=== PATIENT | female | born 1935 | race Caucasian/White ===

== ENCOUNTER 2020-01-16 00:08 | Inpatient (IN) ==
[2020-01-16] MEDS: FentaNYL (PF) 1,000 MCG in 0.9 % Sodium Chloride 80 ML IVC SCH ×2 (02:42→22:07)
[2020-01-16] MEDS: Norepinephrine 4 MG in 0.9 % Sodium Chloride 250 ML IVC SCH ×2 (02:45→13:52)
[2020-01-16] MEDS ORDERED: Naloxone 0.4 MG/ML INJ IVP PRN (03:10)
[2020-01-16] MEDS: Pantoprazole 40 MG VIAL IVP SCH ×2 (04:35→17:40)
[2020-01-16 05:05] LABS: ABG Base Excess 4 mEq/L (-2 to 3); ABG HCO3 31 mEq/L (21-27); ABG Oxygen Saturation 96 % (95-98); ABG PCO2 64 mmHg (35-45); ABG PH 7.29 pH Units (7.32-7.45); ABG PO2 91 mmHg (85-104); ABG TCO2 33 mEq/L (20-26); Blood Gas Modality AF; Blood Gas VT 500 cc
[2020-01-16 06:22] LABS: Basophils % 0.1 %; Eosinophils % 0.1 %; Hemoglobin 7.9 g/dL (11.5-15.4); Mean Platelet Volume 12.9 fL (9.4-12.4)
[2020-01-16 06:24] LABS: Hematocrit 26.2 % (35.3-44.9); INR 1.6; Immature Granulocytes % 6.7 % (0-4); Immature Platelets 17.4 % (1.1-6.1); Lymphocytes # 0.9 K/mcL (0.6-4.6); Lymphocytes % 3.4 %; Mean Corpuscular HGB Conc 30.2 g/dL (31.6-35.5); Mean Corpuscular Hemoglobin 27.8 pg (28.0-33.3); Mean Corpuscular Volume 92.3 fL (83.0-100.0); Monocytes # 6.7 K/mcL (0.0-1.3); Monocytes % 25.5 %; Neutrophils # 16.9 K/mcL (1.6-8.9); Prothrombin Time 17.9 Seconds (9.4-12.1); Red Blood Count 2.84 M/mcL (3.82-4.97); Segmented Neutrophils % 64.2 %; White Blood Count 26.3 K/mcL (4.3-11.1)
[2020-01-16 06:26] LABS: Activated Partial Thrombo Time 32.4 Seconds (26.0-36.0); Platelet Count 83 K/mcL (140-400)
[2020-01-16 06:40] LABS: Albumin 3.6 g/dL (3.5-5.7); Albumin/Globulin Ratio 1.4 (1.1-2.2); Bilirubin,Total 0.6 mg/dL (0.3-1.0); Calcium 8.8 mg/dL (8.6-10.3); Globulin 2.6 g/dL (2.4-3.5); Potassium 4.9 mEq/L (3.5-5.1); Total Protein 6.2 g/dL (6.4-8.9)
[2020-01-16 06:51] LABS: Platelet Estimate Decreased (Normal)
[2020-01-16] MEDS ORDERED: *HR* Dextrose 50 % in Water (Syg) 50 ML SYRINGE IVP PRN (06:54)
[2020-01-16] MEDS ORDERED: D5% in Water 1,000 ML IVC PRN (06:54)
[2020-01-16] MEDS ORDERED: Dextrose Gel 15 GM/37.5 ML TUBE PO PRN ×2 (06:54)
[2020-01-16] MEDS ORDERED: Azithromycin 500 MG in D5% in Water 250 ML IVPB SCH (07:00)
[2020-01-16] MEDS: cefTRIAXone 1,000 MG in Water for inj. (sterile) 10 ML IVP SCH (07:45)
[2020-01-16] MEDS ORDERED: Artificial Tears SOLN 15 ML BOTTLE BOTH EYES PRN (09:02)
[2020-01-16] MEDS: Insulin LISPRO 300 UNITS/3 ML VIAL SQ SCH ×3 (12:47→23:14)
[2020-01-16] MEDS: Artificial Tears SOLN 15 ML BOTTLE BOTH EYES SCH ×4 (12:47→23:14)
[2020-01-16] MEDS: Chlorhexidine Rinse 15 ML MOUTHWASH MM SCH ×2 (12:47→21:03)
[2020-01-16 14:19] LABS: Calcium 8.9 mg/dL (8.6-10.3); Potassium 4.4 mEq/L (3.5-5.1); Troponin I 0.03 ng/mL (< 0.04)
[2020-01-16 14:26] LABS: Mean Corpuscular Volume 90.4 fL (83.0-100.0)
[2020-01-16 14:29] LABS: Hematocrit 25.4 % (35.3-44.9); Hemoglobin 7.9 g/dL (11.5-15.4); Immature Platelets 16.7 % (1.1-6.1); Mean Corpuscular HGB Conc 31.1 g/dL (31.6-35.5); Mean Corpuscular Hemoglobin 28.1 pg (28.0-33.3); Mean Platelet Volume 12.9 fL (9.4-12.4); Red Blood Count 2.81 M/mcL (3.82-4.97); White Blood Count 24.6 K/mcL (4.3-11.1)
[2020-01-16 15:00] LABS: Platelet Count 86 K/mcL (140-400)
[2020-01-16 15:02] LABS: Large Platelets Present (Not Present); Platelet Estimate Decreased (Normal)
[2020-01-16 15:03] LABS: Anisocytosis 1+ (Not Present)
[2020-01-16 15:05] LABS: Neutrophils # 18.2 K/mcL (1.6-8.9)
[2020-01-16 15:09] LABS: ABG Base Excess 5 mEq/L (-2 to 3); ABG HCO3 27 mEq/L (21-27); ABG Oxygen Saturation 98 % (95-98); ABG PCO2 33 mmHg (35-45); ABG PH 7.53 pH Units (7.32-7.45); ABG PO2 94 mmHg (85-104); ABG TCO2 28 mEq/L (20-26); Blood Gas VT 500 cc
[2020-01-16] MEDS: Doxycycline 100 MG in 0.9 % Sodium Chloride Mini Bag 100 ML IVPB SCH ×2 (17:36→17:39)
[2020-01-16] MEDS ORDERED: *HR* Metoprolol 5 MG/5 ML VIAL IVP ONE ×2 (19:33→19:47)
[2020-01-16] MEDS ORDERED: DilTIAZem 50 MG in 0.9 % Sodium Chloride 40 ML IVC SCH (20:30)
[2020-01-16 20:40] LABS: Magnesium 1.7 mg/dL (1.6-2.6); Phosphorous 2.4 mg/dL (2.7-4.5)
[2020-01-16] MEDS: Phenylephrine 10 MG in 0.9 % Sodium Chloride 250 ML IVC SCH ×2 (20:46→22:59)
[2020-01-16] MEDS: Apixaban 2.5 MG TABLET PO SCH (21:03)
[2020-01-17] MEDS: Phenylephrine 10 MG in 0.9 % Sodium Chloride 250 ML IVC SCH (01:43)
[2020-01-17 04:29] LABS: ABG Base Excess 5 mEq/L (-2 to 3); ABG HCO3 31 mEq/L (21-27); ABG Oxygen Saturation 96 % (95-98); ABG PCO2 51 mmHg (35-45); ABG PH 7.38 pH Units (7.32-7.45); ABG PO2 83 mmHg (85-104); ABG TCO2 32 mEq/L (20-26); Blood Gas Modality AF; Blood Gas VT 400 cc
[2020-01-17] MEDS: Artificial Tears SOLN 15 ML BOTTLE BOTH EYES SCH ×2 (04:30→08:31)
[2020-01-17 04:52] LABS: Hemoglobin 7.6 g/dL (11.5-15.4)
[2020-01-17 04:53] LABS: Hematocrit 24.5 % (35.3-44.9); Immature Platelets 12.8 % (1.1-6.1); Mean Corpuscular Hemoglobin 28.6 pg (28.0-33.3); Mean Corpuscular Volume 92.1 fL (83.0-100.0); Mean Platelet Volume 12.5 fL (9.4-12.4); Red Blood Count 2.66 M/mcL (3.82-4.97); Red Cell Distribution Width 14.3 % (11.5-14.5); White Blood Count 19.9 K/mcL (4.3-11.1)
[2020-01-17 04:56] LABS: Platelet Count 88 K/mcL (140-400)
[2020-01-17] MEDS ORDERED: Phenylephrine 50 MG in 0.9 % Sodium Chloride 250 ML IVC SCH (05:00)
[2020-01-17 05:12] LABS: Calcium 8.6 mg/dL (8.6-10.3); Magnesium 1.7 mg/dL (1.6-2.6); Phosphorous 2.7 mg/dL (2.7-4.5); Potassium 4.1 mEq/L (3.5-5.1)
[2020-01-17] MEDS: Doxycycline 100 MG in 0.9 % Sodium Chloride Mini Bag 100 ML IVPB SCH ×2 (05:14→16:30)
[2020-01-17] MEDS: Pantoprazole 40 MG VIAL IVP SCH (05:14)
[2020-01-17] MEDS: Insulin LISPRO 300 UNITS/3 ML VIAL SQ SCH ×3 (05:15→16:31)
[2020-01-17 05:25] LABS: Lymphocytes # 4.8 K/mcL (0.6-4.6); Monocytes # 1.2 K/mcL (0.0-1.3); Neutrophils # 13.9 K/mcL (1.6-8.9); Platelet Estimate Decreased (Normal)
[2020-01-17 05:26] LABS: Large Platelets Present (Not Present)
[2020-01-17] MEDS ORDERED: Morphine Sulfate Oral CONC 10 MG/0.5 ML ORAL.SYG SL PRN (08:05)
[2020-01-17] MEDS: cefTRIAXone 1,000 MG in Water for inj. (sterile) 10 ML IVP SCH (08:31)
[2020-01-17] MEDS: Chlorhexidine Rinse 15 ML MOUTHWASH MM SCH (08:31)
[2020-01-17] MEDS: Apixaban 2.5 MG TABLET PO SCH ×2 (08:31→20:20)
[2020-01-17] MEDS ORDERED: Naloxone 0.4 MG/ML INJ IVP PRN (09:42)
[2020-01-17] MEDS ORDERED: *HR* Dextrose 50 % in Water (Syg) 50 ML SYRINGE IVP PRN (09:42)
[2020-01-17] MEDS ORDERED: Dextrose Gel 15 GM/37.5 ML TUBE PO PRN ×2 (09:42)
[2020-01-17] MEDS ORDERED: D5% in Water 1,000 ML IVC PRN (09:42)
[2020-01-17] MEDS: DilTIAZem CD (24hr) 180 MG CAP.ER.24H PO SCH (12:34)
[2020-01-17] MEDS: Gabapentin 300 MG CAPSULE PO SCH ×2 (16:30→20:20)
[2020-01-17] MEDS: *HR* HYDROcodone/Acet 10/325 mg TABLET PO PRN (22:09)
[2020-01-18] MEDS: Insulin LISPRO 300 UNITS/3 ML VIAL SQ SCH ×5 (01:30→21:46)
[2020-01-18] MEDS: Doxycycline 100 MG in 0.9 % Sodium Chloride Mini Bag 100 ML IVPB SCH ×2 (06:01→17:12)
[2020-01-18 07:50] LABS: Estimated Average Glucose 134 mg/dl
[2020-01-18] MEDS ORDERED: LIDOCAINE TD SCH (09:00)
[2020-01-18] MEDS ORDERED: cefTRIAXone 1,000 MG in Water for inj. (sterile) 10 ML IVP SCH (09:00)
[2020-01-18] MEDS: Cyanocobalamin (B-12) 1,000 MCG TABLET PO SCH (09:04)
[2020-01-18] MEDS: Gabapentin 300 MG CAPSULE PO SCH ×3 (09:04→21:44)
[2020-01-18] MEDS: DilTIAZem CD (24hr) 180 MG CAP.ER.24H PO SCH (09:04)
[2020-01-18] MEDS: Cholecalciferol (D-3) 1,000 UNIT (25MCG) TABLET PO SCH (09:04)
[2020-01-18] MEDS: Apixaban 2.5 MG TABLET PO SCH ×2 (09:04→21:44)
[2020-01-18 10:00] LABS: Calcium 9.1 mg/dL (8.6-10.3)
[2020-01-18 13:59] LABS: Hematocrit 25.8 % (35.3-44.9); Hemoglobin 7.8 g/dL (11.5-15.4); Mean Corpuscular HGB Conc 30.2 g/dL (31.6-35.5); Mean Corpuscular Hemoglobin 28.4 pg (28.0-33.3); Mean Corpuscular Volume 93.8 fL (83.0-100.0); Mean Platelet Volume 12.3 fL (9.4-12.4); Red Blood Count 2.75 M/mcL (3.82-4.97); Red Cell Distribution Width 14.3 % (11.5-14.5); White Blood Count 11.7 K/mcL (4.3-11.1)
[2020-01-18 14:00] LABS: Platelet Count 97 K/mcL (140-400)
[2020-01-18] MEDS ORDERED: cefTRIAXone 1,000 MG in Water for inj. (sterile) 10 ML IVP ONE (14:06)
[2020-01-18] MEDS: Furosemide 20 MG TABLET PO SCH (17:12)
[2020-01-18] MEDS: Budesonide/Formoterol 160/4.5 1 PUFF INH IH SCH (20:07)
[2020-01-18] MEDS: (Cyclosporine [Restasis] 1 DROP) OP SCH (21:46)
[2020-01-19] MEDS: Fluticasone Propionate Nasal 50 MCG/SPRAY BOTTLE NS SCH ×3 (00:09→10:13)
[2020-01-19] MEDS: *HR* HYDROcodone/Acet 10/325 mg TABLET PO PRN ×2 (01:39→23:27)
[2020-01-19 03:57] LABS: Hematocrit 24.9 % (35.3-44.9); Hemoglobin 7.6 g/dL (11.5-15.4); Immature Platelets 11.4 % (1.1-6.1); Mean Corpuscular HGB Conc 30.5 g/dL (31.6-35.5); Mean Corpuscular Hemoglobin 28.6 pg (28.0-33.3); Mean Corpuscular Volume 93.6 fL (83.0-100.0); Red Blood Count 2.66 M/mcL (3.82-4.97); Red Cell Distribution Width 14.3 % (11.5-14.5); White Blood Count 11.1 K/mcL (4.3-11.1)
[2020-01-19 04:16] LABS: Calcium 8.9 mg/dL (8.6-10.3); Potassium 4.3 mEq/L (3.5-5.1)
[2020-01-19] MEDS: Doxycycline 100 MG in 0.9 % Sodium Chloride Mini Bag 100 ML IVPB SCH ×2 (05:06→17:08)
[2020-01-19] MEDS: Insulin LISPRO 300 UNITS/3 ML VIAL SQ SCH ×4 (07:33→21:11)
[2020-01-19] MEDS ORDERED: NON-FORMULARY MEDICATION 1 EACH EACH (Gluc/Chon-Msm#1/C/Mang/Bos/Bor [Osteo Bi-Flex Caplet PO SCH (09:00)
[2020-01-19] MEDS ORDERED: NON-FORMULARY MEDICATION 1 EACH EACH (Biotin 1 MG) PO SCH (09:00)
[2020-01-19] MEDS ORDERED: 0.9 % Sodium Chloride 1,000 ML IVC SCH (09:45)
[2020-01-19] MEDS: Ascorbic Acid 500 MG TABLET PO SCH (09:56)
[2020-01-19] MEDS: Furosemide 20 MG TABLET PO SCH ×2 (09:57→16:01)
[2020-01-19] MEDS: Apixaban 2.5 MG TABLET PO SCH ×2 (09:57→21:42)
[2020-01-19] MEDS: DilTIAZem CD (24hr) 180 MG CAP.ER.24H PO SCH (09:57)
[2020-01-19] MEDS: Gabapentin 300 MG CAPSULE PO SCH ×3 (09:58→21:42)
[2020-01-19] MEDS: (Cyclosporine [Restasis] 1 DROP) OP SCH ×2 (09:58→23:19)
[2020-01-19] MEDS: Magnesium Oxide 400 MG TABLET PO SCH (09:58)
[2020-01-19] MEDS: Cyanocobalamin (B-12) 1,000 MCG TABLET PO SCH (09:59)
[2020-01-19] MEDS: cefTRIAXone 2,000 MG in 0.9 % Sodium Chloride Mini Bag 100 ML IVPB SCH (09:59)
[2020-01-19] MEDS: lisinopriL 10 MG TABLET PO SCH (10:01)
[2020-01-19] MEDS: Cholecalciferol (D-3) 1,000 UNIT (25MCG) TABLET PO SCH (10:01)
[2020-01-19] MEDS: Multivit/Ca/Min/Fe/FA 1 TAB TABLET PO SCH (10:01)
[2020-01-19] MEDS: Budesonide/Formoterol 160/4.5 1 PUFF INH IH SCH ×2 (10:30→20:18)
[2020-01-20] MEDS: Albuterol 2.5 MG/3 ML NEBULIZER IH PRN ×4 (03:08→20:03)
[2020-01-20] MEDS: Doxycycline 100 MG in 0.9 % Sodium Chloride Mini Bag 100 ML IVPB SCH (04:23)
[2020-01-20] MEDS: Budesonide/Formoterol 160/4.5 1 PUFF INH IH SCH ×2 (07:28→20:04)
[2020-01-20 08:14] LABS: Hematocrit 26.3 % (35.3-44.9); Hemoglobin 7.9 g/dL (11.5-15.4); Mean Corpuscular Hemoglobin 28.2 pg (28.0-33.3); Mean Corpuscular Volume 93.9 fL (83.0-100.0); Mean Platelet Volume 12.2 fL (9.4-12.4); Nucleated Red Blood Cells 0.2 /100 WBC (0); Red Cell Distribution Width 14.1 % (11.5-14.5); White Blood Count 9.8 K/mcL (4.3-11.1)
[2020-01-20 08:16] LABS: Platelet Count 86 K/mcL (140-400)
[2020-01-20 08:33] LABS: Calcium 8.9 mg/dL (8.6-10.3); Magnesium 1.3 mg/dL (1.6-2.6); Potassium 4.3 mEq/L (3.5-5.1)
[2020-01-20 08:37] LABS: Monocytes # 2.9 K/mcL (0.0-1.3); Neutrophils # 4.5 K/mcL (1.6-8.9)
[2020-01-20 08:38] LABS: Platelet Estimate Slight Decrease (Normal)
[2020-01-20] MEDS: Insulin LISPRO 300 UNITS/3 ML VIAL SQ SCH ×4 (08:40→22:32)
[2020-01-20] MEDS: Apixaban 2.5 MG TABLET PO SCH ×2 (08:46→22:30)
[2020-01-20] MEDS: Gabapentin 300 MG CAPSULE PO SCH ×3 (08:46→22:30)
[2020-01-20] MEDS: DilTIAZem CD (24hr) 180 MG CAP.ER.24H PO SCH (08:46)
[2020-01-20] MEDS: Ascorbic Acid 500 MG TABLET PO SCH (08:46)
[2020-01-20] MEDS: lisinopriL 10 MG TABLET PO SCH (08:46)
[2020-01-20] MEDS: Furosemide 20 MG TABLET PO SCH ×2 (08:46→16:34)
[2020-01-20] MEDS: Cholecalciferol (D-3) 1,000 UNIT (25MCG) TABLET PO SCH (08:46)
[2020-01-20] MEDS: Magnesium Oxide 400 MG TABLET PO SCH (08:47)
[2020-01-20] MEDS: Multivit/Ca/Min/Fe/FA 1 TAB TABLET PO SCH (08:47)
[2020-01-20] MEDS: cefTRIAXone 2,000 MG in 0.9 % Sodium Chloride Mini Bag 100 ML IVPB SCH (08:47)
[2020-01-20] MEDS: (Cyclosporine [Restasis] 1 DROP) OP SCH ×2 (08:47→22:50)
[2020-01-20] MEDS: Cyanocobalamin (B-12) 1,000 MCG TABLET PO SCH (08:47)
[2020-01-20] MEDS: Fluticasone Propionate Nasal 50 MCG/SPRAY BOTTLE NS SCH (08:48)
[2020-01-20] MEDS: *HR* HYDROcodone/Acet 10/325 mg TABLET PO PRN ×2 (11:09→22:42)
[2020-01-20] MEDS: Doxycycline 100 MG CAPSULE PO SCH (22:30)
[2020-01-21] MEDS: Albuterol 2.5 MG/3 ML NEBULIZER IH PRN (04:11)
[2020-01-21 07:09] LABS: Nucleated Red Blood Cells 0.2 /100 WBC (0)
[2020-01-21 07:10] LABS: Hematocrit 27.1 % (35.3-44.9); Immature Platelets 13.7 % (1.1-6.1); Mean Corpuscular HGB Conc 29.5 g/dL (31.6-35.5); Mean Corpuscular Hemoglobin 27.8 pg (28.0-33.3); Mean Corpuscular Volume 94.1 fL (83.0-100.0); Mean Platelet Volume 11.9 fL (9.4-12.4); Red Blood Count 2.88 M/mcL (3.82-4.97); Red Cell Distribution Width 14.2 % (11.5-14.5); White Blood Count 12.2 K/mcL (4.3-11.1)
[2020-01-21 07:14] LABS: Platelet Count 86 K/mcL (140-400)
[2020-01-21] MEDS: Budesonide/Formoterol 160/4.5 1 PUFF INH IH SCH (07:30)
[2020-01-21 07:31] VITALS: BP 119/74
[2020-01-21 07:33] LABS: Calcium 9.1 mg/dL (8.6-10.3); Magnesium 1.5 mg/dL (1.6-2.6); Potassium 4.2 mEq/L (3.5-5.1)
[2020-01-21 07:59] LABS: Folate > 22.3 ng/mL (3.0-16.0); Vitamin B12 > 1500 pg/mL (250-1100)
[2020-01-21 09:03] LABS: Eosinophils # 0.1 K/mcL (0.0-0.6); Lymphocytes # 2.2 K/mcL (0.6-4.6); Monocytes # 3.7 K/mcL (0.0-1.3); Reactive Lymphocytes Present (Not Present); Toxic Vacuolation Present (Not Present)
[2020-01-21 09:04] LABS: Platelet Estimate Decreased (Normal); Poikilocytosis 1+ (Not Present)
[2020-01-21] MEDS: Insulin LISPRO 300 UNITS/3 ML VIAL SQ SCH (09:14)
[2020-01-21] MEDS: DilTIAZem CD (24hr) 180 MG CAP.ER.24H PO SCH (09:19)
[2020-01-21] MEDS: Gabapentin 300 MG CAPSULE PO SCH (09:19)
[2020-01-21] MEDS: Doxycycline 100 MG CAPSULE PO SCH (09:19)
[2020-01-21] MEDS: Multivit/Ca/Min/Fe/FA 1 TAB TABLET PO SCH (09:19)
[2020-01-21] MEDS: Cholecalciferol (D-3) 1,000 UNIT (25MCG) TABLET PO SCH (09:20)
[2020-01-21] MEDS: Apixaban 2.5 MG TABLET PO SCH (09:20)
[2020-01-21] MEDS: (Cyclosporine [Restasis] 1 DROP) OP SCH (09:20)
[2020-01-21] MEDS: Ascorbic Acid 500 MG TABLET PO SCH (09:20)
[2020-01-21] MEDS: lisinopriL 10 MG TABLET PO SCH (09:20)
[2020-01-21] MEDS: Furosemide 20 MG TABLET PO SCH (09:20)
[2020-01-21] MEDS: Cyanocobalamin (B-12) 1,000 MCG TABLET PO SCH (09:20)
[2020-01-21] MEDS: Fluticasone Propionate Nasal 50 MCG/SPRAY BOTTLE NS SCH (09:22)
[2020-01-21] MEDS: cefTRIAXone 2,000 MG in 0.9 % Sodium Chloride Mini Bag 100 ML IVPB SCH (09:25)
== END 2020-01-21 11:09 | DRG 871 ==
LOC: SUATTDRO 01:56 → ICNU 01:56 → 2ANU 01-17 10:25
PROVIDERS: ADMIT Family Medicine; ATTEND Pharmacist